=== PATIENT | female | born 1960 | race Caucasian/White ===

== ENCOUNTER 2021-05-13 14:35 | Observation (INO) | payer OTHER ==
[~2021-05-13] VITALS: Ht 160 cm; Wt 88.5 kg
[2021-05-13 14:35] VITALS: BP 189/79
--- NOTE | 2021-05-13 14:55 | NUR ---
PT RETURNED FROM CT SCAN AND PLACED ON WEIGH BED. [facility] NEUROLOGIST DR. IVERSON ASSESSING PT AT THIS TIME.
--- NOTE | 2021-05-13 15:18 | NUR ---
PATIENT ASKED THIS RN IF SHE IS GETTING A SHOT OF "THE MEDICATION." THIS RN STATED NO THAT MEDICATION IS NOT GOING TO BE GIVEN NOW. PATIENTS EYES GOT LARGE AND SHE ASKED WHY SHE IS NOT GETTING "THE MEDICATION." I EXPLAINED IT IS NOT A SHOT AND IT IS AN IV MEDICATION AND SHE STATED SHE KNOWS AND THAT IT IS GOING TO BE PUT ON HOLD BY THE DOCTORS AT THIS TIME. SHE STARTED TO GET UPSET AND STATED SHE NEEDED THE MEDICATION.
[2021-05-13 15:19] LABS: ABSOLUTE NEUTROPHILS 3.5 thou/uL (1.4-8.2); BASOPHILS 0.6 % (0.0-2.0); EOSINOPHILS 1.2 % (0.0-3.0); HEMATOCRIT 39.6 % (37.0-47.0); HEMOGLOBIN 13.3 gm/dL (12.0-15.0); LYMPHOCYTES 37.2 % (24.0-44.0); MCH 28.7 pg (26.0-34.0); MCHC 33.7 g/dL (28.0-37.0); MCV 85.2 fL (80.0-100.0); MONOCYTES 9.3 % (1.0-8.0); PLATELET COUNT 278 thou/uL (150-400); POLYS 51.7 % (36.0-66.0); RBC 4.64 mil/uL (4.20-5.00); RDW 13.7 % (10.5-14.5); WBC 6.8 thou/uL (4.0-11.0)
[2021-05-13 15:25] LABS: CALCIUM 9.2 mg/dL (8.5-10.1); CREATININE 0.8 mg/dL (0.6-1.0)
[2021-05-13 15:32] LABS: APTT 25.9 Seconds (24.5-32.8); INR 1.14; PROTIME 12.4 Seconds (10.5-12.1)
[2021-05-13 15:35] LABS: ALBUMIN 3.8 g/dL (3.4-5.0); TOTAL BILIRUBIN 0.4 mg/dL (0.2-1.0); TOTAL PROTEIN 6.9 g/dL (6.4-8.2)
[2021-05-13 17:31] LABS: CHOLESTEROL 182 mg/dL (<200); HDL CHOLESTEROL 49 mg/dL (>40); LDL CHOLESTEROL 113 mg/dL (<100); TC:HDL 3.7 Ratio (Not establshd); TRIGLYCERIDE 101 mg/dL (<150); VLDL 20 mg/dL (<40)
[2021-05-13 17:32] LABS: SERUM ASSESSMENT Clear
--- NOTE | 2021-05-13 18:09 | NUR ---
PATIENT IS NO LONGER STUTTERING WHEN SPEAKING OR HAVING ISSUES WITH LEFT ARM. PATIENT REQUESTED WATER AND USED LEFT ARM TO HOLD AND DRINK WATER WITH NO ASSISTANCE. ALSO SPOUSE MADE A COMMENT OF "BREAKING OUT THE BIG MEDICATION FOR PAIN NOW" AFTER TYLENOL WAS GIVEN FOR PAIN PER REQUEST OF PATIENT. AFTER SPOUSE SAID THAT PATIENT SMILED AT THE COMMENT WITH NO DEFICIT TO EITHER SIDE. ED STAFF ASSISSTED PATIENT TO COMMODE TO VOID. ED STAFF REPORTED PATIENT ACTED CONFUSED ON HOW TO GET TO THE COMMODE BUT DID NOT NOTE ANY DEFICIT WITH AMBULATION OR MOVEMENT.
[2021-05-13 23:38] VITALS: BP 125/72
[2021-05-13] MEDS ORDERED: NOHOMEMEDICATIONS (23:49)
[2021-05-14 06:14] LABS: HEMOGLOBIN 13.4 gm/dL (12.0-15.0); MCH 28.9 pg (26.0-34.0); MCHC 33.5 g/dL (28.0-37.0); MCV 86.3 fL (80.0-100.0); RBC 4.64 mil/uL (4.20-5.00); RDW 13.8 % (10.5-14.5); WBC 5.3 thou/uL (4.0-11.0)
[2021-05-14 06:37] LABS: CALCIUM 8.7 mg/dL (8.5-10.1); CREATININE 0.9 mg/dL (0.6-1.0); POTASSIUM 3.6 mmol/L (3.5-5.1)
--- NOTE | 2021-05-14 06:56 | NUR ---
PT SLEPT MOST OF THE NIGHT. SHE AWAKENED THIS MORNING COMPLAINING OF A HEADACHE. PT REQUESTED MORE OF THE HALDOL SHE WAS GIVEN LAST EVENING, STATING IT REALLY HELPED HER HEADACHE. RN EXPLAINED THAT THE HALDOL WAS A ONE TIME ORDER AND PT COULD HAVE PRN TYLENOL INSTEAD. PT INITIALLY WANTED A MEDICATION STRONGER THAN TYLENOL, BUT WAS WILING TO TRY THE TYLENOL FIRST. PT AMBULATED TO R WITH SBA. GAIT STEADY. SPEECH CLEAR. WILL GIVE REPORT TO ONCOMING NURSE.
--- NOTE | 2021-05-14 07:18 | EKG ---
[address] [address] ELECTROCARDIOGRAM REPORT Name: JANE CROW Room #: 170-17 ADM IN M.R.#: [id number] Admission: 05/13/21 Attend Phys: Clifford Thapa MD Discharge: Date of : 64 Report #: [id number] 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
[2021-05-14 09:19] VITALS: BP 138/80
[2021-05-14] MEDS ORDERED: BACLOFEN5 MG PO (12:19)
[2021-05-14] MEDS ORDERED: TRAMADOL 50 MG50 MG PO (12:19)
[2021-05-14] MEDS ORDERED: CHILDREN'S ASPI81 M1 PO (12:19)
[2021-05-14 12:54] VITALS: BP 138/80
[2021-05-14 14:15] VITALS: BP 186/86
[2021-05-14 14:17] VITALS: BP 104/63
--- NOTE | 2021-05-14 14:55 | HC ---
[facility] [place] [address] CONSULTATION Name: JANE CROW Room #: 170-17 ADM [facility] M.R.#: [id number] Admission: 05/13/21 Attend Phys: Clifford Thapa MD Discharge: Date of : 64 Report #: [id number] THIS REPORT FOR: cc: FAM - Family physician unknown FAM - Family physician unknown Van Randall MD ~ DATE OF SERVICE: 05/14/2021 HISTORY OF PRESENT ILLNESS: This is a 60-year-old female patient who was evaluated by me for a routine consult for stroke-like symptoms. I have talked to multiple people and reviewed those records and I had multiple conversations with the patient and the patient's on the phone. I have to get the history from multiple people and then put it together after a lot of effort the piecemeal information which I got. This patient was brought to Emergency Room yesterday with left-sided weakness. The patient was also having some speech difficulty at that time. The patient was evaluated in the Emergency Room. She was evaluated by [facility]. I reviewed the notes from hospitalist as well as from the Emergency Room physician. As I understand from the record and by talking to multiple people, the wanted the patient to have TPA, but it was not given for multiple reasons. As I understand, the patient's symptoms were not very persistent and did try to get the record from [facility], but they could not get the record from [facility], but one of the physician was able to log into the [facility] and her MRI was also normal. The patient indicates that her symptoms have significantly improved. Review of system indicate that this patient says that she had a stroke on the opposite side. I had multiple conversations with the patient and the . I talked to him initially to get the history. He had a question whether I would have given the TPA if I was the neurologist yesterday. I told him that I cannot comment upon that because I was not there and I am doing the consultation from now and I can answer the question anything from now which I am going to do and I talked to them in great detail about the plan. They were both agreeable with my plan. I told them that I do not have any records to review from [facility], because apparently they never got any record from the [facility] and it was just that one of the physicians has [facility] privileges and was able to review it in the computer. The did not mention anything at that time, but then they called me back in the room again to discuss something more and that time the patient showed me a record from a followup visit on her, which confirmed that the MRI was normal, but the neurologist thought that it might be a presumptive stroke because of the course she took. I discussed that aspect with them that, that makes things even more difficult because that means she does not have a documented stroke and it was a presumptive stroke that time. In any event, she said she is feeling much better this morning. In fact, she wants to go home if possible by this evening and wants her to do the same thing. [facility] [address] [place] [address] CONSULTATION Name: JANE CROW Room #: 170-17 ADM [facility]a Avalos#: [id number] Admission: 05/13/21 Attend Phys: Clifford Thapa MD Discharge: Date of : 64 Report #: [id number] REVIEW OF SYSTEMS: She is complaining of neck pain. When I reviewed the record, which presented to me towards the last part of my encounter today, it looks like she has complained of other symptoms in the leg and the arm. Apparently, according to her, her speech was affected last time and she has to have therapy for a long time. She has headache, but she does not know whether it is a chronic headache. This is going on. Those headaches are chronic. She does have a history of anxiety. She takes Xanax occasionally. In between, her says she has taken Zoloft. She thinks she was also given citalopram. All of it will indicate that she does have an established history of anxiety. Now, there is some confusing history that she may have had a TIA also, in addition to that and that was prior to her episodes. Until towards the last portion of my visit with them, I was not having any records from [facility] and I told them, but at last part of the conversation they provided me those records, which is very partial record, but that changes everything. The patient does have a history of hypertension. She does complain of neck pain. She says the neck pain is in the center of the neck, but does go to the left side. She does not have any history of atrial fibrillation. PAST MEDICAL HISTORY: Positive for stroke, but her MRI was negative apparently and it was a presumptive stroke. Past history is also positive for what they describe as a TIA, but further history or any documentation is not available. SOCIAL HISTORY: She said she has smoked in the past, but she is not smoking. I could not get a good history when did she stop. She does not have any history of alcohol use. PHYSICAL EXAMINATION: NEUROLOGIC: The patient was alert. She was able to sustain the conversation when the conversation was going on between me and her and herself. Memory and speech is difficult to tell because I do not know her baseline, but she was able to communicate. Cranial nerve examination is also difficult to tell in this patient. She does not appear to have any hemianopsia. I cannot tell about the facial palsy for sure, but she moves both sides of the face pretty well. She was able to move the left arm and the left leg. Examination is somewhat difficult in that regard because she will take the arm up a little bit and then she will take it more and then she will take it all the way up. It went in stages. Similar thing she did with the leg. She was able to appreciate the position sense in the arm and the leg, but she took a long time to tell me the position sense, but ultimately she got it correct. When I touched her on both sides, she was able to see she can feel on both sides. Reflexes were symmetrical. Plantars were mute. I asked her to do [id number] and she did reasonably well. I could not look at the fundus. CARDIAC: Shows no atrial fibrillation. VITAL SIGNS: Blood pressure is 130/80, pulse is 80, respirations 14, temperature is 98.1. [address] [address] CONSULTATION Name: JANE CROW Room #: [address] [place] [address] M.R.#: [id number] Admission: 05/13/21 Attend Phys: Clifford Thapa MD Discharge: Date of : 64 Report #: [id number] LABORATORY DATA: Her white count is 5.3, which is normal. For some reason, her ALT is slightly high. Her LDL is also high at 113. The patient says that she is not taking any medication. She is not taking any aspirin, even now. I asked both and the patient whether the neurologist at [facility] prescribed her aspirin and they said they did, but she stopped taking it some time ago. IMPRESSION: I am not sure what the diagnosis in this patient is. I think the way to figure it out is get an MRI done. Since she is complaining of neck pain, I also will get an MRI of the C-spine at the same time. If C-spine is unremarkable, then further management will depend upon MRI of the brain. If MRI of the brain demonstrates stroke, then we should manage her accordingly. If MRI of the brain does not demonstrate any stroke, then that will be the second MRI which did not show any stroke when she had stroke-like symptoms, then we need to consider alternate diagnosis in this patient. Alternate diagnosis includes anxiety, hemiplegic migraine or transient ischemic attack. She should be still on aspirin and statin. If stroke is demonstrated, then she can be a candidate for dual antiplatelet therapy. I have reviewed her workup so far. Her CT angiogram is pretty much unremarkable. She is scheduled to have a PT, OT evaluation and I will also add speech evaluation. She needs to be on aspirin and she needs to be on statin and I will talk to the hospitalist about it, because there is nothing which indicates that she is allergic to it, but she is not on that. I talked to the family on multiple visits. I talked to the clearance coordinator. I talked to the MRI and the family was pretty concerned, so I got the MRI done this morning, so that we can decide about the further treatment. I will talk to the patient or the or both after I have the MRI results available, but the fact that she had a documented normal MRI the last time makes the things pretty complicated in this patient and as mentioned above, if the present MRI also is normal, then alternate diagnosis for stroke needs to be even more strongly considered. We will talk to the after the MRI is available. They had numerous questions. They were given the option of going to another facility if they want as per Emergency Room note and I will tell the same thing if they want to proceed with that. I will dictate an addendum to it if this consult is typed and available after I talk to them. Thank you very much for this referral. AddendumThis addendum is being added at the time of signing this note. I reviewed the patient's MRI with the radiologist and there is no evidence of any acute stroke. I called the patient as well as the and had another long [facility] [address] [place] [address] CONSULTATION Name: JANE CROW Room #: 170-17 [facility]#: [id number] Admission: 05/13/21 Attend Phys: Clifford Thapa MD Discharge: Date of : 64 Report #: [id number] conversation with them. This will be a second MRI which is normal when the patient had a strokelike symptoms. That will indicate that we need to look for alternate diagnosis. I discussed with the patient's that she needs to see a neurologist who sub specialise in stroke. This is because the diagnosis of stroke is not clear and alternate diagnoses need to be considered and the guidelines need to be established what to do if she come with the strokelike symptoms. I discussed with them that these medications can have significant side effects so they need to see a stroke subspecialist and get a course established so that the problem like the last time in the emergency room does not occur. I told him in the meantime she should continue aspirin and statin. She should be on both of them. She should not stop those medication without talking to their neurologist or a stroke neurologist which she should follow-up. We talked about aspirin and Plavix also and I discussed those options and subsequently talked about staying on aspirin and statin for the time being. I gave the reference to [facility] or [facility]. They are going to set it up and in the meantime they will stay on aspirin and statin but if any strokelike symptoms occur they need to be reevaluated in the emergency room immediately. Her echocardiogram is pending and we will see if that shows any patent foramen ovale and rest of the work-up is pending which needs to be checked. I spent more than 70 minutes of time today taking care of this patient today and majority was spent counseling and coordinating <ELECTRONICALLY SIGNED> By: Van Randall MD 05/14/21 1455 [id number] Van Randall MD /nt
== END 2021-05-14 14:17 | disposition home or self-care (01) ==
LOC: ER 14:35 → EROBS 16:53
PROVIDERS: Emergency Medicine; ADMIT Hospitalist; ATTEND Hospitalist
DX: R53.1 Weakness (principal); R20.2 Paresthesia of skin; Z20.822 Contact with and (suspected) exposure to COVID-19; Z79.899 Other long term (current) drug therapy; F41.9 Anxiety disorder, unspecified; Z79.01 Long term (current) use of anticoagulants; Z79.82 Long term (current) use of aspirin